=== PATIENT | female | born 1945 | race Caucasian/White ===

== ENCOUNTER 2022-08-01 14:39 | Inpatient (IN) | payer OTHER ==
[~2022-08-01] VITALS: Ht 160 cm; Wt 48.1 kg
[2022-08-01 14:44] VITALS: BP_SYST 132
--- NOTE | 2022-08-01 14:45 | NUR ---
Placed in room 1 . Placed on ekg monitor tech, blood pressure machine and pulse oximeter. To gown for exam. Side rails up.
--- NOTE | 2022-08-01 14:53 | NUR ---
COVID-19 CHINEDU, INFLUENZA, AND MRSA SWABS OBTAINED LABELED AND SENT TO THE LAB.
--- NOTE | 2022-08-01 15:00 | NUR ---
RECEIVED PT IN BED #1 BIB BLS FROM [place] FOR [facility] OF [facility]. PT IS STABLE, AAOx3, NAD, VSS, AWAITING FURTHER ASSESSMENTS BY ED MD FOR DISPOSITION WITH PLAN OF CARE.
[2022-08-01] MEDS ORDERED: NACL 0.9% 1,000 ML IV ONE (15:15)
[2022-08-01] MEDS ORDERED: levETIRAcetam 500 MG IV PREMIX 100 ML IV ONE (15:30)
[2022-08-01] MEDS ORDERED: LORazepam 2 MG/ML VIAL IVP ONE (15:30)
[2022-08-01 15:45] LABS: BASOPHILS # (AUTO) 0.1 K/uL (0.0-0.2); BASOPHILS % (AUTO) 0.6 % (0.0-2.0); EOSINOPHILS # (AUTO) 0.1 K/uL (0.0-0.4); EOSINOPHILS % (AUTO) 0.5 % (0.0-4.0); HEMATOCRIT 42.1 % (36-48); HEMOGLOBIN 13.9 g/dL (12.0-16.0); LYMPHOCYTES % (AUTO) 8.2 % (20.5-51.5); MEAN CORPUSCULAR HEMOGLOBIN 30 pg (27-31); MEAN CORPUSCULAR HGB CONC 33 % (32-36); MEAN CORPUSCULAR VOLUME 91 fL (79.0-98.0); MONOCYTES # (AUTO) 0.5 K/uL (0.0-1.0); MONOCYTES % (AUTO) 4.2 % (1.7-9.3); NEUTROPHILS # (AUTO) 10.5 K/uL (1.8-7.7); NEUTROPHILS % (AUTO) 86.5 % (40.0-70.0); PLATELET COUNT (AUTO) 322 K/uL (130-430); RED BLOOD CELL COUNT(AUTO) 4.64 MIL/uL (4.2-6.2); RED CELL DISTRIBUTION WIDTH 13.6 % (9.0-15.0); WHITE BLOOD COUNT (AUTO) 12.2 K/uL (4.8-10.8)
[2022-08-01 16:06] LABS: ANION GAP 5 (5-15); CALCIUM 8.9 mg/dL (8.4-11.0); CHLORIDE 105 mmol/L (98-107); GLUCOSE 114 mg/dL (70-99); UREA NITROGEN, BLOOD 24 mg/dL (8-21)
[2022-08-01 16:16] LABS: ALANINE AMINOTRANSFERASE 17 U/L (12-78); ALBUMIN 2.8 g/dL (3.4-4.8); ASPARTATE AMINOTRANSFERASE 17 U/L (10-37); TOTAL BILIRUBIN 0.4 mg/dL (0.0-1.0)
--- NOTE | 2022-08-01 17:35 | NUR ---
Admit bed requested Patient will be admitted to care of . Admitted to TELEMETRY unit. Diagnosis SEIZURES Inpatient (Yes or No) Y Observation (Yes or No) N Orientation concerns or request close to nursing station (Yes or No) Y Covid Status NEG On vent or bipap N Isolation requirements N Needs a sitter N From Home (Yes or if No enter name of facility) NO. CYNDI HEATH Requires Dialysis (Yes or No) N Med Rec Completed (Yes of No) Y
[2022-08-01] MEDS ORDERED: CALC200T47 PO (17:43)
[2022-08-01] MEDS ORDERED: ASCO500T20 PO (17:43)
[2022-08-01] MEDS ORDERED: VITD2000 PO (17:43)
[2022-08-01] MEDS ORDERED: ALEN10TA25 PO (17:43)
[2022-08-01] MEDS ORDERED: LORazepam 2 MG/ML VIAL IVP PRN (17:45)
[2022-08-01 18:42] LABS: BILIRUBIN,URINE NEGATIVE (NEGATIVE); CLARITY/URINE SL CLOUDY (CLEAR); GLUCOSE,URINE NEGATIVE (NEGATIVE); KETONES,URINE TRACE (NEGATIVE); LEUKOCYTE ESTERASE ,URINE TRACE (NEGATIVE); NITRITE, URINE POSITIVE (NEGATIVE); PROTEIN URINE NEGATIVE (NEGATIVE); UROBILINOGEN,URINE 0.2 (0.2-1.0)
[2022-08-01 18:46] LABS: BLOOD, URINE TRACE (NEGATIVE)
[2022-08-01 18:47] LABS: COLOR,URINE YELLOW (YELLOW)
[2022-08-01 19:07] LABS: BACTERIA,URINE MODERATE /HPF (None Seen); MUCUS,URINE 1+ /LPF (None Seen); RBC,URINE 0-3 /HPF (0-3)
--- NOTE | 2022-08-01 19:46 | NUR ---
REPORT GIVEN TO DIYA DANIELLE TO ASSUME CARE.
--- NOTE | 2022-08-01 20:09 | NUR ---
# 22 gauge angiocath placed to R FA. Use of asceptic technique. Opsite placed over site. Blood return noted. Flushed with 10 cc of normal saline. No evidence of infiltration noted. Patient tolerated well.
--- NOTE | 2022-08-01 20:32 | NUR ---
Patient will be admitted to care of MD Martinez. Admitted to Tele unit. Will go to room 104A. Belongings list completed. Complete and up to date summary report printed. SBAR report given at bedside to SHASHI Aden with opportunity for questions.
[2022-08-01] MEDS: levETIRAcetam 500 MG in NS 100 ML IV SCH (21:00)
[2022-08-01 21:21] VITALS: BP_SYST 110
--- NOTE | 2022-08-02 00:49 | NUR ---
ROUNDS; -Pt is resting in bed comfortably. NO s/s any chest pain,pain,sob,or any acute distress noted. IV site patent, no s/s any infiltration noted. IVF infusing well. No seizure activity noted. Seizure precaution in place, all side rails x4 padded. bed alarmed, side rails x3,call light w/in reach. Cont to monitor pt. Addendum: 08/03/22 at 0103 by Viktoria Friedman RN RN WRONG TIME AND DATE
--- NOTE | 2022-08-02 07:24 | NUR ---
CLOSING NOTES Patient resting in bed - no s/s pain or distress noted. Respirations even and unlabored - head of bed elevated 2L NC. IV site patent - no s/s redness, infection, or infiltration. Bed locked and in lowest position. Call light within reach - bed alarm on. Patient cleaned linens changed.
[2022-08-02 08:00] VITALS: BP_SYST 128
--- NOTE | 2022-08-02 08:00 | NUR ---
AM ASSESSMENT PT DROWSY, INCONTINENT OF BLADDER, PERINEAL CARE DONE, BOTTOM SHEETS CHANGED, DISPOSABLE PADS PLACED UNDER HER TO KEEP PT DRY, CONTINUE TO MONITOR THE PATIENT.
[2022-08-02] MEDS: levETIRAcetam 500 MG in NS 100 ML IV SCH (10:01)
[2022-08-02 11:58] VITALS: BP_SYST 129
--- NOTE | 2022-08-02 13:28 | NUR ---
CONSULTATION PAGED/CALLED Reason for Consultation: [] ALOC Person Who was Notified: [] TEXTED CONSULT TO DR NIX Consulting Physician: [] DR Arin NIX Agility Instructor Specialty: [] NEURO Ordering Physician: [] DR COLES
[2022-08-02] MEDS: D5/0.45 NS 1,000 ML IV SCH (13:33)
--- NOTE | 2022-08-02 14:52 | NUR ---
TO RADIOLOGY DEPT TRANSPORTED TO MRI DEPT VIA [facility].
[2022-08-02] MEDS ORDERED: GADOTERATE MEGLUMINE 7.5 MMOL/15 ML VIAL IV ONE (15:21)
--- NOTE | 2022-08-02 15:54 | NUR ---
TO [facility] PT RETURNED TO ROOM 104-A.
[2022-08-02 17:00] VITALS: BP_SYST 121
[2022-08-02 19:40] VITALS: BP_SYST 115
--- NOTE | 2022-08-02 19:40 | NUR ---
PM ASSESSMENT; -Pt is a/o1, resting in bed comfortably. NO s/s any chest pain,pain,sob,or any acute distress noted. IV site patent, no s/s any infiltration noted. IVF infusing well. Unable to discuss poc d/t cognitive limitation, no family is available this time. Seizure precaution in place, all side rails x4 padded. bed alarmed, side rails x3,call light w/in reach. Cont to monitor pt.
[2022-08-03] VITALS: BP_SYST 116
[2022-08-03] MEDS: levETIRAcetam 500 MG in NS 100 ML IV SCH ×3 (00:48→21:20)
[2022-08-03] MEDS: D5/0.45 NS 1,000 ML IV SCH ×3 (00:49→15:53)
--- NOTE | 2022-08-03 00:49 | NUR ---
ROUNDS; -Pt is resting in bed comfortably. NO s/s any chest pain,pain,sob,or any acute distress noted. IV site patent, no s/s any infiltration noted. IVF infusing well. No seizure activity noted. Seizure precaution in place, all side rails x4 padded. bed alarmed, side rails x3,call light w/in reach. Cont to monitor pt.
--- NOTE | 2022-08-03 04:11 | NUR ---
ROUNDS; -Pt is asleep. NO s/s any chest pain,pain,sob,or any acute distress noted. Seizure precaution in place. bed alarmed, side rails x3,call light w/in reach. Cont to monitor pt.
--- NOTE | 2022-08-03 06:44 | NUR ---
CLOSING NOTES; -Pt is resting in bed comfortably. NO s/s any chest pain,pain,sob,or any acute distress noted. No seizure activity entire shift noted. Seizure precaution in place, all side rails x4 padded. bed alarmed, side rails x3,call light w/in reach. will endorse to next nurse to cont care.
[2022-08-03 07:45] LABS: BASOPHILS % (AUTO) 0.5 % (0.0-2.0); EOSINOPHILS # (AUTO) 0.2 K/uL (0.0-0.4); EOSINOPHILS % (AUTO) 1.8 % (0.0-4.0); HEMATOCRIT 37.1 % (36-48); HEMOGLOBIN 12.6 g/dL (12.0-16.0); LYMPHOCYTES # (AUTO) 1.2 K/uL (1.0-5.5); LYMPHOCYTES % (AUTO) 13.1 % (20.5-51.5); MEAN CORPUSCULAR HEMOGLOBIN 31 pg (27-31); MEAN CORPUSCULAR HGB CONC 34 % (32-36); MEAN CORPUSCULAR VOLUME 90 fL (79.0-98.0); MONOCYTES # (AUTO) 0.8 K/uL (0.0-1.0); MONOCYTES % (AUTO) 8.2 % (1.7-9.3); NEUTROPHILS # (AUTO) 7.2 K/uL (1.8-7.7); NEUTROPHILS % (AUTO) 76.4 % (40.0-70.0); PLATELET COUNT (AUTO) 298 K/uL (130-430); RED BLOOD CELL COUNT(AUTO) 4.13 MIL/uL (4.2-6.2); RED CELL DISTRIBUTION WIDTH 13.6 % (9.0-15.0); WHITE BLOOD COUNT (AUTO) 9.4 K/uL (4.8-10.8)
[2022-08-03 07:50] LABS: ANION GAP 8 (5-15); CALCIUM 8.2 mg/dL (8.4-11.0); CHLORIDE 103 mmol/L (98-107); GLUCOSE 126 mg/dL (70-99); UREA NITROGEN, BLOOD 15 mg/dL (8-21)
[2022-08-03 08:00] VITALS: BP_SYST 114
--- NOTE | 2022-08-03 08:00 | NUR ---
AM NOTES CONFUSED WITH DEMENTIA, STARTED ON PUREED DIET TOLERATED WELL, NO SEIZURES NOTED, TURNED AND REPOSITIONED.
[2022-08-03 11:33] VITALS: BP_SYST 100
--- NOTE | 2022-08-03 12:00 | NUR ---
NOTES SEEN BY DR COLES, AT BEDSIDE. TOOK LUNCH, FED PATIENT.
[2022-08-03 15:24] VITALS: BP_SYST 104
--- NOTE | 2022-08-03 18:00 | NUR ---
NOTES FED PATIENT, HAD A BM, WITH PRESENCE OF BLOOD, TURNED AND REPOSITIONED.
[2022-08-03 19:15] VITALS: BP_SYST 117
--- NOTE | 2022-08-03 19:15 | NUR ---
PM ASSESSMENT; -Pt is a/o1, resting in bed comfortably. NO s/s any chest pain,pain,sob,or any acute distress noted. IV site infiltrated, will insert new IV site. Unable to discuss poc d/t cognitive limitation, no family is available this time. Seizure precaution in place, all side rails x4 padded. bed alarmed, side rails x3,call light w/in reach. Cont to monitor pt.
--- NOTE | 2022-08-03 21:25 | NUR ---
NOTES; -Inserted IV site on left f/a #20 attempted x1, good blood returns, flushed well w/ NS. Removed old IV site of rt f/a with a whole tip catheter in place, secured with tape,no active bleeding noted.
[2022-08-04 00:45] VITALS: BP_SYST 107
--- NOTE | 2022-08-04 01:02 | NUR ---
ROUNDS; -Pt is asleep. NO s/s any chest pain,pain,sob,or any acute distress noted. IV site patent, no s/s any infiltration noted. IVF infusing well. No seizure activity noted. Seizure precaution in place, all side rails x4 padded. bed alarmed, side rails x3,call light w/in reach. Cont to monitor pt.
[2022-08-04] MEDS: D5/0.45 NS 1,000 ML IV SCH ×2 (01:55→15:25)
[2022-08-04 08:00] VITALS: BP_SYST 132
[2022-08-04 08:11] LABS: BASOPHILS # (AUTO) 0.1 K/uL (0.0-0.2); BASOPHILS % (AUTO) 0.8 % (0.0-2.0); EOSINOPHILS # (AUTO) 0.1 K/uL (0.0-0.4); EOSINOPHILS % (AUTO) 1.4 % (0.0-4.0); HEMATOCRIT 36.7 % (36-48); HEMOGLOBIN 12.5 g/dL (12.0-16.0); LYMPHOCYTES # (AUTO) 1.4 K/uL (1.0-5.5); LYMPHOCYTES % (AUTO) 13.7 % (20.5-51.5); MEAN CORPUSCULAR HEMOGLOBIN 31 pg (27-31); MEAN CORPUSCULAR HGB CONC 34 % (32-36); MEAN CORPUSCULAR VOLUME 90 fL (79.0-98.0); MONOCYTES # (AUTO) 0.8 K/uL (0.0-1.0); MONOCYTES % (AUTO) 7.7 % (1.7-9.3); NEUTROPHILS # (AUTO) 7.7 K/uL (1.8-7.7); NEUTROPHILS % (AUTO) 76.4 % (40.0-70.0); PLATELET COUNT (AUTO) 274 K/uL (130-430); RED BLOOD CELL COUNT(AUTO) 4.09 MIL/uL (4.2-6.2); RED CELL DISTRIBUTION WIDTH 13.4 % (9.0-15.0)
[2022-08-04] MEDS: CALCIUM 500 MG/TAB PO SCH (08:15)
[2022-08-04] MEDS: levETIRAcetam 500 MG in NS 100 ML IV SCH ×2 (08:15→21:36)
[2022-08-04] MEDS: ASCORBIC ACID 500 MG TABLET PO SCH (08:15)
[2022-08-04] MEDS: CHOLECALCIFEROL (VITAMIN D3) 2,000 UNIT TABLET PO SCH (08:16)
[2022-08-04 08:25] LABS: ANION GAP 9 (5-15); CALCIUM 8.1 mg/dL (8.4-11.0); CHLORIDE 102 mmol/L (98-107); CREATININE 0.65 mg/dL (0.55-1.30); GLUCOSE 106 mg/dL (70-99); UREA NITROGEN, BLOOD 13 mg/dL (8-21)
--- NOTE | 2022-08-04 08:58 | NUR ---
Notes- Awake , confused. No distress. Eat most everything of her breakfast. IVF infusing well. Will monitor.
[2022-08-04] MEDS ORDERED: CALCIUM CITRATE 200 MG TABLET PO SCH (09:00)
--- NOTE | 2022-08-04 09:36 | NUR ---
EEG staff at bedside doing procedure.
[2022-08-04 11:25] VITALS: BP_SYST 127
[2022-08-04 15:24] VITALS: BP_SYST 104
--- NOTE | 2022-08-04 15:46 | NUR ---
PAGED PT HAS MDRO OF THE URINE. PAGED DR. COLSE. WAITING FOR MD TO CALL BACK.
[2022-08-04] MEDS ORDERED: COMMUNICATION ORDER XX ONE (16:30)
[2022-08-04] MEDS: ERTAPENEM SODIUM 1 GM in NS 50 ML IV SCH (17:50)
--- NOTE | 2022-08-04 18:25 | NUR ---
Notes- resting, no distress, Invanz antibiotics started.
--- NOTE | 2022-08-04 19:20 | NUR ---
OPENING NOTES: Patient received from Keila shift nurse. Patient is confused unable to make needs known with no s/s of distress noted at this time. Chest rise is even and unlabored on RA, patient is also on tele monitoring. Patient is stable at this time, safety measures are in place as per protocol and patient has call light within reach. Will resume care and continue to monitor throughout the shift.
[2022-08-04 20:00] VITALS: BP_SYST 120
[2022-08-04] MEDS: MUPIROCIN 2% TOPICAL OINTMENT 22 GM NS SCH (21:36)
--- NOTE | 2022-08-05 00:45 | NUR ---
PATIENT RESTING: Patient resting quietly. No acute distress noted. Vital signs within normal range. Patient care has been provided including hygiene care and patient has been turned in bed q2h as ordered. Will continue to monitor.
[2022-08-05 00:49] VITALS: BP_SYST 104
[2022-08-05] MEDS: D5/0.45 NS 1,000 ML IV SCH ×3 (02:06→20:55)
[2022-08-05 08:27] VITALS: BP_SYST 99
[2022-08-05] MEDS: levETIRAcetam 500 MG in NS 100 ML IV SCH ×2 (09:55→20:55)
[2022-08-05] MEDS: ASCORBIC ACID 500 MG TABLET PO SCH (09:56)
[2022-08-05] MEDS: CALCIUM 500 MG/TAB PO SCH (09:56)
[2022-08-05] MEDS: CHOLECALCIFEROL (VITAMIN D3) 2,000 UNIT TABLET PO SCH (09:56)
[2022-08-05] MEDS: MUPIROCIN 2% TOPICAL OINTMENT 22 GM NS SCH ×2 (10:11→20:54)
[2022-08-05 11:28] VITALS: BP_SYST 90
[2022-08-05 15:26] VITALS: BP_SYST 105
[2022-08-05] MEDS: ERTAPENEM SODIUM 1 GM in NS 50 ML IV SCH (18:07)
--- NOTE | 2022-08-05 18:33 | NUR ---
0800 am notes received pt in bed little lethergic. vital stable. res even and unlabored. ivf infusing well. notin acute distress. safety precautions in place. 1000- pt resting comfortably. pt fed by RN student. pt cleaned and repositioned with certified nurse practitioner. 1230 - pt stable notin acute distress. . no s/s o pain or distress. noted 1545- pt stable not in acute distress. .no s/s of pain or distress noted. at bed side. [facility] will arrange bed and orther equipments tomorrow .
--- NOTE | 2022-08-05 19:49 | NUR ---
CLOSING NOTES pt stable not in acute distress. .no s/s of pain or distress noted. needs attended.
[2022-08-05 20:00] VITALS: BP_SYST 91
[2022-08-06 01:30] VITALS: BP_SYST 107
--- NOTE | 2022-08-06 04:25 | NUR ---
2000 PM Notes; Patient received from AM shift, Patient is AA&Ox1 vital stable. res even and unlabored. IVF infusing well. no acute distress is noted at this time. safety precautions in place. 2200- Patient is resting comfortable, no s/s of distress is noted at this time, 2100 scheduled medications has been administered as ordered, patient has been provided incontinence, delmi care and has been turned to prevent skin breakdown. 0100- Patient is resting comfortable, no s/s of distress is noted at this time, V/S are WNL, patient has been provided incontinence, delmi care and has been turned to prevent skin breakdown. 0330- pt stable notin acute distress. . no s/s o pain or distress. noted. Patient has been turned to prevent skin breakdown.
[2022-08-06] MEDS: D5/0.45 NS 1,000 ML IV SCH ×2 (07:00→17:00)
[2022-08-06 08:00] VITALS: BP_SYST 102
[2022-08-06] MEDS: ASCORBIC ACID 500 MG TABLET PO SCH (09:00)
[2022-08-06] MEDS: CALCIUM 500 MG/TAB PO SCH (09:00)
[2022-08-06] MEDS: CHOLECALCIFEROL (VITAMIN D3) 2,000 UNIT TABLET PO SCH (09:00)
[2022-08-06] MEDS: levETIRAcetam 500 MG in NS 100 ML IV SCH (09:27)
[2022-08-06] MEDS: MUPIROCIN 2% TOPICAL OINTMENT 22 GM NS SCH (09:27)
[2022-08-06] MEDS ORDERED: FOSF3PAC4 PO (09:54)
[2022-08-06 11:32] VITALS: BP_SYST 93
--- NOTE | 2022-08-06 12:31 | NUR ---
Mmd Unit Teacher QUALIFICATIONS EXAMINER was asked to see pt. from HCP re hospice. QUALIFICATIONS EXAMINER called HCP Venessa, who stated she had not heard of a SNF, as per Doctors orders, [facility]. QUALIFICATIONS EXAMINER called pts. , Vick who stated the name is actually, [facility] and pt. has never been on hospice. Family has been connected to [facility] through the [facility]. A hospital bed is being delivered today to the [facility] . lives in [place] and pt. resides in this B [facility] in [place] for the past 10 years. QUALIFICATIONS EXAMINER called and shared info with Oksana. QUALIFICATIONS EXAMINER will remain available as needed.
[2022-08-06 12:33] VITALS: BP_SYST 95
--- NOTE | 2022-08-06 15:06 | NUR ---
Dietitian Recommendations * Continue puree as per * Recommend Ensure HP BID (provides 700 kcal and 40 g protein) GS, MPH, RD Please refer to RD Assessment for further details Addendum: 08/06/22 at [address] Amended: Links added.
[2022-08-06 15:41] VITALS: BP_SYST 91
--- NOTE | 2022-08-06 17:11 | NUR ---
care note- patient remains a/ox0-1, her vitals remains stable she was downgraded from tele to MS. patient was unarousable in am for medications and would not follow commands, therefore am medications were held. patient remains an aspiration risk she is total care and requires assistance with feeding and meds. patient is incontinent and q2vroxf have been implemented to prevent skin breakdown. patient remains on RA and shows no s/s of discomfort or difficulty breathing.
[2022-08-06 17:22] VITALS: BP_SYST 91
[2022-08-06] MEDS: ERTAPENEM SODIUM 1 GM in NS 50 ML IV SCH (18:41)
--- NOTE | 2022-08-06 19:40 | NUR ---
patient and were given discharge instructions, at 1905 on 08/06/22 [facility] arrived. Iv was removed patient's belongings were returned and patient left vicinity at 1930. patient will be transported to [facility] where she will receive hospice care. report given to director of hospice care fidencio Cook at 1830.
== END 2022-08-06 19:40 | disposition hospice, home (50) | DRG 100 ==
LOC: SED 14:39 → STU 17:32 → SMU 08-06 15:37
PROVIDERS: ADMIT Internal Medicine; ATTEND Internal Medicine
DX: R56.9 Unspecified convulsions (principal); E43 Unspecified severe protein-calorie malnutrition; G35 Multiple sclerosis; F03.90 Unspecified dementia, unspecified severity, without behavioral disturbance, psychotic disturbance, mood disturbance, and anxiety; Z20.822 Contact with and (suspected) exposure to COVID-19; G93.9 Disorder of brain, unspecified; N18.9 Chronic kidney disease, unspecified; I12.9 Hypertensive chronic kidney disease with stage 1 through stage 4 chronic kidney disease, or unspecified chronic kidney disease
CPT/HCPCS: 36415; 70450-TC; 70553; 71045; 76376; 80048; 80053; 81000; 83605; 85025; 87040; 87081; 87086; 93005; 95816; 96365; 96375; 99285; A9575; G0378; J1335; J1953